=== PATIENT | male | born 1945 | race Caucasian/White ===

== ENCOUNTER 2018-11-03 13:01 | Day surgery (SDC) | payer MEDICARE ==
[~2018-11-03] VITALS: Ht 185.4 cm; Wt 89.4 kg
[2018-11-03 13:26] VITALS: BP 132/82
[2018-11-03] MEDS ORDERED: LACTATED RINGERS 1,000 ML IV SCH (13:27)
[2018-11-03] MEDS ORDERED: PLEASE ENTER ALLERGIES MC SCH (13:30)
[2018-11-03] MEDS ORDERED: IBUP-1484 PO (13:41)
[2018-11-03] MEDS ORDERED: LUPRON DEPOT (13:41)
[2018-11-03] MEDS ORDERED: RANI300T3 PO (13:41)
[2018-11-03] MEDS ORDERED: LISI-170 PO (13:41)
[2018-11-03] MEDS ORDERED: MULT-658 PO (13:41)
[2018-11-03] MEDS ORDERED: PHEN-418 PO (13:42)
[2018-11-03 14:37] LABS: ALANINE AMINOTRANSFERASE 18 U/L (12-78); ALBUMIN 3.6 g/dL (3.4-5.0); ANION GAP 6 mmol/L (5-15); CALCIUM 8.8 mg/dL (8.5-10.1); CHLORIDE 106 mmol/L (98-107); CREATININE 1.11 mg/dL (0.7-1.3)
[2018-11-03 14:39] LABS: ALKALINE PHOSPHATASE 50 U/L (45-117); BILIRUBIN,TOTAL 0.6 mg/dL (0.2-1.0); TOTAL PROTEIN 6.8 g/dL (6.4-8.2)
[2018-11-03] MEDS ORDERED: FENTANYL PF 250 MCG/5ML ONE (14:53)
[2018-11-03] MEDS ORDERED: PROPOFOL 10 MG/ML, 20ML ONE (15:16)
[2018-11-03] MEDS ORDERED: ONDANSETRON 2MG/ML, 2ML ONE (15:16)
[2018-11-03] MEDS ORDERED: CEFAZOLIN 1,000 MG ONE (15:16)
[2018-11-03] MEDS ORDERED: DEXAMETHASONE 4 MG/ML, 5ML ONE ×2 (15:31→15:36)
[2018-11-03] MEDS ORDERED: ROCURONIUM 10MG/ML,5ML ONE (15:32)
[2018-11-03] MEDS ORDERED: EPHEDRINE 50 MG/ML, 1ML ONE (15:36)
[2018-11-03] MEDS ORDERED: SUCCINYLCHOLINE 20 MG/ML, 10ML ONE (15:36)
[2018-11-03] MEDS ORDERED: hydrALAzine 20 MG/ML, 1ML IV PRN (16:00)
[2018-11-03] MEDS ORDERED: ONDANSETRON 2MG/ML, 2ML IV PRN (16:00)
[2018-11-03] MEDS ORDERED: MIDAZOLAM 1 MG/ML, 2ML IV PRN (16:00)
[2018-11-03] MEDS ORDERED: ONDANSETRON ODT 8 MG PO PRN (16:00)
[2018-11-03] MEDS ORDERED: MORPHINE SULFATE 4 MG/ML, 1ML IVPush PRN (16:00)
[2018-11-03] MEDS ORDERED: HALOPERIDOL 5 MG/ML IV PRN (16:00)
[2018-11-03] MEDS ORDERED: MEPERIDINE/PF 25MG/0.5ML IVPush PRN (16:00)
[2018-11-03] MEDS ORDERED: FENTANYL PF 100 MCG/2ML IV PRN (16:00)
[2018-11-03] MEDS ORDERED: PROMETHAZINE 12.5 MG SUPP PR PRN (16:00)
[2018-11-03] MEDS ORDERED: OXYcodone 5 MG/5 ML ORAL.SOL UDC PO PRN (16:00)
[2018-11-03] MEDS ORDERED: PROMETHAZINE 25 MG/ML, 1ML IV PRN (16:00)
[2018-11-03] MEDS ORDERED: DIAZEPAM 5 MG/ML, 2ML IVPush PRN (16:00)
[2018-11-03] MEDS ORDERED: HYDROmorphone 2 MG/ML, 1ML IVPush PRN (16:00)
[2018-11-03] MEDS ORDERED: ACETAMINOPHEN 325 MG TABLET PO PRN (16:00)
[2018-11-03] MEDS ORDERED: ALBUTEROL SULFATE 2.5 MG/3 ML NPPB PRN (16:00)
[2018-11-03] MEDS ORDERED: LABETALOL 5MG/ML, 20ML IV PRN (16:00)
[2018-11-03] MEDS ORDERED: EPHEDRINE 50 MG/ML, 1ML IVPush PRN (16:00)
[2018-11-03] MEDS ORDERED: OXYcodone/APAP 5/325MG TABLET PO PRN (16:30)
[2018-11-03] MEDS ORDERED: PHENAZOPYRIDINE 200 MG TABLET PO ONE (17:30)
[2018-11-03] MEDS ORDERED: HYDROcodone/APAP 5/325 TABLET PO ONE (18:30)
== END 2018-11-03 18:50 | disposition home or self-care (01) ==
LOC: OUT 13:01
PROVIDERS: ATTEND Urology
DX: N30.41 Irradiation cystitis with hematuria (principal); I10 Essential (primary) hypertension
CPT/HCPCS: 36415; 52001; 52214; 80053; 93005; J0330; J1100; J2405; J2704; J3010; J0690